=== PATIENT | female | born 1945 | race Caucasian/White ===

== ENCOUNTER 2024-06-03 11:59 | Emergency (ER) | payer MEDICARE, SELFPAY ==
[2024-06-03 12:01] VITALS: BP 148/70; PULSE 100; RESP 16; TEMP 36.5; O2SAT 99; BMI 24.3
--- NOTE | 2024-06-03 12:45 | ED.BACK ---
HPI - Back Pain/Injury <Becca Aldana PA-C - Last Filed: 06/03/24 15:29> General Chief Complaint: Back Pain/Injury Stated Complaint: Fell backwards from stairs, back px, no thinners Time Seen by Provider: 06/03/24 12:26 Source: patient History of Present Illness HPI Narrative: 79-year-old woman with kyphosis presents with concern for upper back pain after she sustained a fall 2 days ago at home. Patient states she was standing on a small landing area 2 steps up in her home and for some reason thought that she was already on the level relevant being 2 steps up took a step backwards and her foot ended up in space, she fell backwards landing very hard on her upper back right over the area where she has a curve in her spine. Her partner did not witness it but states that ?the whole house Shook and I heard a crash?. Patient states that all of her weight went squarely on her upper back and immediately after she fell her head did go back slightly and bump against the leg of the nearby desk. She said she landed on carpeted floor. She denies loss of consciousness and says she remembers the entire event. She since that time has been taking Tylenol and ibuprofen which has done little to relieve her 4-6/10 back pain. Her pain is slightly increased by deep breaths but not by normal breathing. She states it does not radiate anywhere. She denies any numbness or tingling in her extremities, one-sided weakness, neck pain, headache, vision changes, syncope, LOC, palpitations, chest pain, shortness of breath, low back pain. She has been ambulatory. States she lives on [address] and would have come in sooner for evaluation otherwise. Patient last took 1000 mg of Tylenol this morning with breakfast. Related Data Home Medications Medication Instructions Recorded Confirmed multivitamin (Multiple Vitamins 1 tab PO QDAY ##0 03/10/17 tablet) Previous Rx's Medication Instructions Recorded calcitonin (salmon) 200 1 spray intranasal (ALT) DAILY 4 06/03/24 unit/actuation nasal spray weeks #3.7 mL Allergies Allergy/AdvReac Type Severity Reaction Status Date / Time quinacrine AdvReac Mild PSYCHOTIC Verified 06/03/24 12:06 EPISODE Review of Systems <Becca Aldana PA-C - Last Filed: 06/03/24 15:29> Review of Systems Narrative: See HPI Patient History <Becca Aldana PA-C - Last Filed: 06/03/24 15:29> Social History Smoking Status: Former smoker Smoking Status: Former smoker Exam <Becca Aldana PA-C - Last Filed: 06/03/24 15:29> Narrative Exam Narrative: GENERAL: [79] year old patient appears stated age. Well-developed patient, in mild distress. HEAD: Atraumatic. Normocephalic. EYES: Pupils equal round and reactive. Extraocular motions intact. No scleral icterus. No injection or drainage. ENT: Nose without bleeding, purulent drainage. Airway patent. NECK: Trachea midline. Non tender CARDIOVASCULAR: Regular rate and rhythm without murmurs, gallops, or rubs. RESPIRATORY: Clear to auscultation. Breath sounds equal bilaterally. No wheezes, rales, or rhonchi. GASTROINTESTINAL: Abdomen nondistended. EXTREMITIES: Moving all extremities, gait slightly slow BACK: There is pronounced kyphosis of the thoracic spine. C-spine and lumbar spine are nontender midline without deformity or step-offs. Thoracic spine at T6-T8 (center of kyphotic curve) has tenderness immediately lateral to the spine that is pronounced, associated left paraspinal muscle swelling/tightness, there is a slight skin discoloration erythema/abrasion noted just left lateral to the spine at this level. Patient endorses ?numb tingly sensation? with palpation over T6-8. Spine/back is otherwise nontender without deformity or crepitance. No flank tenderness. NEURO: AOx3. Patient ambulated to room without apparent difficulty. SKIN: No rash or erythema of visible areas Initial Vital Signs Initial Vital Signs: Vital Signs Temperature 97.7 F 06/03/24 12:01 Pulse Rate 100 H 06/03/24 12:01 Respiratory Rate 16 06/03/24 12:01 Blood Pressure 148/70 H 06/03/24 12:01 Pulse Oximetry 99 06/03/24 12:01 Oxygen Delivery Method Room Air 06/03/24 12:01 <Madai Jane DO - Last Filed: 06/04/24 07:05> Initial Vital Signs Initial Vital Signs: Vital Signs Temperature 97.7 F 12/15/24 12:01 Pulse Rate 100 H 06/03/24 12:01 Respiratory Rate 16 06/03/24 12:01 Blood Pressure 148/70 H 06/03/24 12:01 Pulse Oximetry 99 06/03/24 12:01 Oxygen Delivery Method Room Air 06/03/24 12:01 Course <Becca Aldana PA-C - Last Filed: 06/03/24 15:29> Orders Ordered: Discontinued Medications Acetaminophen (Acetaminophen 325 Mg Tablet) 650 mg PO NOW ONE Stop: 06/03/24 13:13 Last Admin: 06/03/24 13:33 Dose: 650 mg Documented By: RL Vital Signs Vital signs: Vital Signs - 8 hr 06/03/24 12:01 06/03/24 14:21 Temperature 97.7 F Pulse Rate 100 H 77 Respiratory Rate 16 16 Blood Pressure 148/70 H 139/67 Pulse Oximetry 99 99 Oxygen Delivery Method Room Air Room Air <Madai Jane DO - Last Filed: 06/04/24 07:05> Orders Ordered: Discontinued Medications Acetaminophen (Acetaminophen 325 Mg Tablet) 650 mg PO NOW ONE Stop: 06/03/24 13:13 Last Admin: 06/03/24 13:33 Dose: 650 mg Documented By: RL Vital Signs Vital signs: Vital Signs - 8 hr 06/03/24 12:01 06/03/24 14:21 Temperature 97.7 F Pulse Rate 100 H 77 Respiratory Rate 16 16 Blood Pressure 148/70 H 139/67 Pulse Oximetry 99 99 Oxygen Delivery Method Room Air Room Air MDM - Back Pain/Injury <Becca Aldana PA-C - Last Filed: 06/03/24 15:29> Differential Diagnosis Differential diagnosis: Likely thoracic back pain and other (compression fracture, thoracic strain/sprain, muscle spasm) Imaging Data Thoracic spine CT: My Impression: Agree with Radiology impression Radiologist's Impression: [address] [address] [address] Scan Report Signed Patient: Irena Spence MR#: [id number] : 1945 Acct:[id number] Age/Sex: 79 / F Date of Service: 06/03/24 Loc: ED Accession Number: [id number] Procedure: CT thoracic spine wo con Ordering Provider: Becca Aldana PA-C PROCEDURE: CT THORACIC SPINE WO CON INDICATIONS: T6-8 numb/tender, fall from hgt 2 steps up 2D ago +kyphosis TECHNIQUE: Noncontrast 3 mm thick sections acquired through the region of interest in the thoracic spine. Sagittal and coronal reformats were then constructed. For radiation dose reduction, the following was used: automated exposure control. COMPARISON: None. FINDINGS: Image quality: Excellent. Bones: There is a compression fracture of T8 with approximately 50% loss of vertebral body height. There are no retropulsed fragments. Endplate sclerosis is seen at the T7-T8 and T11-12 levels. Schmorl's nodes are present at multiple levels, most prominent at T12-L1. There is normal overall bony alignment. No suspicious sclerotic or lytic bony lesions. Mineralization is overall decreased. Central spinal canal is of normal overall caliber. Soft tissues: No paravertebral masses or hematomas. Visualized posteromedial lungs appear clear. There is a large hiatal hernia. IMPRESSION: T8 compression fracture, age indeterminate. Osteopenia. Large hiatal hernia. Dictated by: Luann Renee M.D. on 06/03/2024 at 12:45 Approved by: Luann Renee M.D. on 06/03/2024 at 12:52 MDM Narrative Medical decision making narrative: Is a 79-year-old woman presenting with concern for thoracic back pain after she fell 2 days ago landing square on the kyphotic curve of her back. Patient has numbness sensation over T6-8 and significant tenderness immediately left of the spine at T6-8. Given her age the fact that she fell from 2 steps up and then landed on this section of her back as well as her kyphosis CT ordered over x-ray as it will be more accurate for diagnosing fracture. Patient's pain has been between 4-6 constantly since her injury. Administered 650 mg Tylenol today in ER for pain. Symptoms history and vitals do not suggest a cardiovascular or other etiology for her pain, most likely musculoskeletal. No back pain red flags. CT returns positive for a compression fracture at T8 with about 50% vertebral body height loss also with changes consistent with osteoporosis/arthritis seen in the spine. Patient advised to continue with Tylenol ibuprofen, she endorses good kidney function with last labs. Advised to follow up closely with her PCP. Prescription for intranasal calcitonin as well. Advised she may want to talk to her PCP about obtaining a referral to a ortho marketing specialist in the event that she has not having an improvement in her pain and symptoms within 2-4 weeks. Encouraged to minimize lifting, leaning forward or other movements that cause increased pain or discomfort for her until her symptoms improve. Seek re-evaluation if she worsens. Return precautions provided, follow-up plan discussed, all questions answered. Discharge Plan Departure Patient Disposition: Home Clinical Impression: Compression fx, thoracic spine Qualifiers: Encounter type: initial encounter Thoracic vertebra fracture level: T8 Qualified Code(s): S22.060A - Wedge compression fracture of T7-T8 vertebra, initial encounter for closed fracture Instructions: DI for Vertebral Fracture Activity Restrictions/Additional Instructions: *You have been diagnosed with [vertebral body compression fracture at T8] *What to do: *Please continue to take your regular medications as directed. [1 ] New medication prescriptions sent to your pharmacy: [Calcitonin intranasal] [ ] New medication written as a paper prescription [ ] No new medications given *Please follow up with your primary care provider in 2-3 days, call for an appointment. Let them know you were seen in the Emergency Department and that we ask that you be seen in follow up. We will electronically transmit a record of today's note if your PCP is in our system. We did a CT scan of your thoracic spine today based on your age the fact that you fell down stairs and that you have some kyphosis/curve in your spine. It did show you have a compression fracture of your T8 vertebra with about a 50% loss of height in the vertebra. Thankfully you do not have any other neurologic symptoms. There is no misalignment of the vertebra and treatment is supportive care initially with Tylenol and ibuprofen, I also prescribed intranasal calcitonin which has been shown to be helpful for reducing pain associated with compression fractures. Your imaging also showed you have a fair amount of osteoporosis and changes to your spine that are chronic. You should probably talk to your primary care provider about getting a referral for ortho spine, in the event that your pain is not improving at all after 2-4 weeks or you want to see a specialist for further evaluation of this. If you have any new or worsening symptoms please make sure you seek re-evaluation. The prescription for calcitonin was sent to [facility] in [place] since you are currently traveling. *If you do not have a primary care provider please contact the [facility] Resource line at [phone]. They will ask some questions about your medical history and help get you set up with a doctor in the community. *Return to Emergency Department if you should have any new, worsening or concerning symptoms, such as [fever greater than 101 F, shaking chills, worsening pain, persistent vomiting or other bothersome symptoms] Prescriptions: New calcitonin (salmon) 200 unit/actuation spray,non-aerosol 1 spray intranasal (ALT) DAILY 28 Days Qty: 3.7 1RF No Action multivitamin [Multiple Vitamins] 1 EACH tablet 1 tab PO QDAY Qty: 0 Referrals: Blayne Connell MD [Primary Care Provider] - Stand Alone Forms: Patient Portal/API/Survey ED Sign-out <Madai Jane DO - Last Filed: 06/04/24 07:05> Cosign ED Attending Cosignature Attestation: I was available for consultation.
[2024-06-03] MEDS: ACETAMINOPHEN 325 MG TABLET 650 MG PO (13:33)
[2024-06-03 14:21] VITALS: BP 139/67; PULSE 77; RESP 16; O2SAT 99
== END 2024-06-03 14:21 | disposition home or self-care (01) ==
PROVIDERS: Emergency Provider Student in an Organized Health Care Education/Training Program; PCP Family Medicine
DX: S22.060A Wedge compression fracture of T7-T8 vertebra, initial encounter for closed fracture (principal); W10.9XXA Fall (on) (from) unspecified stairs and steps, initial encounter; Y93.89 Activity, other specified
CPT/HCPCS: 72128; 99284